=== PATIENT | female | born 2000 | race Caucasian/White ===

== ENCOUNTER 2020-04-07 22:35 | Emergency (ER) | payer OTHER ==
[~2020-04-07] VITALS: Ht 160 cm; Wt 88.0 kg
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
[2020-04-07] MEDS ORDERED: HYDROMORPHONE INJ 2 MG/ML DISP.SYRIN IM ONE (23:00)
[2020-04-07] MEDS ORDERED: HYDROMORPHONE 1 MG/1 ML DISP.SYRIN ONE (23:02)
--- NOTE | 2020-04-07 23:22 | NUR ---
TAKEN TO CT AND XRAY
--- NOTE | 2020-04-08 01:28 | NUR ---
Patient discharged to home in stable condition. Written and verbal after care instructions given. Patient verbalizes understanding of instruction and RX. Pt ambulated with steday gait. vss. Pt wheeled out of E.D. Picked up by parents.
[2020-04-08 01:41] VITALS: BP 124/74
== END 2020-04-08 01:42 | disposition home or self-care (01) ==
LOC: ER 22:37
DX: S80.212A Abrasion, left knee, initial encounter (principal); M25.571 Pain in right ankle and joints of right foot; M25.561 Pain in right knee; R51 Headache; V49.59XA Passenger injured in collision with other motor vehicles in traffic accident, initial encounter; Y93.89 Activity, other specified; Y92.413 State road as the place of occurrence of the external cause; Y99.8 Other external cause status
CPT/HCPCS: 70450; 71100; 72125; 73564 ×2; 73590; 73610; 73630; 74176; 96372; 99285; J1170